=== PATIENT | male | born 1975 | race Caucasian/White ===

== ENCOUNTER 2017-05-29 16:27 | Emergency (ER) | payer BC ==
--- NOTE | 2017-05-29 16:58 | ERPHSYRPT ---
- History of Present Illness Time Seen by Provider: 05/29/17 16:51 Source: patient Exam Limitations: no limitations Patient Subjective Stated Complaint: at 1600 yesterday began having left jaw pain and pain radiating down left arm. left arm numb also. also having some nausea today. states jaw pain is inside mouth. Triage Nursing Assessment: ambulated to room per self. skin w/d, color normal, resp easy. no edema noted. denies any cardiac history. Physician History: 42-year-old white male arrives with complaint of pain in his left anterior lower jaw radiating to his face also shooting down his left shoulder and arm symptoms described as a sharp pain began yesterday at 4:00 in the afternoon patient denies shortness of breath she states she did have some nausea. He does state that he was seen by his family doctor and sent here for further evaluation. Past medical history includes prediabetic. Past surgical history includes left hand surgery. Social history patient denies tobacco alcohol or illicit drug use Timing/Duration: yesterday Severity: moderate Modifying Factors: Improves With: nothing Associated Symptoms: nausea, No vomiting, No abdominal pain, No shortness of breath, No heartburn, No diaphoresis, No cough, No chills, No chest pain, No fever, No headaches, No loss of appetite, No malaise, No syncope, No seizure, No weakness Allergies/Adverse Reactions: No Known Drug Allergies Allergy (Unverified 05/29/17 16:41) Hx Tetanus, Diphtheria Vaccination/Date Given: No Hx Influenza Vaccination/Date Given: No Hx Pneumococcal Vaccination/Date Given: No - Review of Systems Constitutional: No Fever, No Chills Eyes: No Symptoms Ears, Nose, & Throat: Mouth Pain, No No Symptoms, No Ear Pain, No Ear Discharge , No Hearing Changes, No Tinnitus, No Nose Pain, No Nose Congestion, No Nose Discharge, No Sinus Drainage, No Epistaxis, No Mouth Swelling, No Loose Teeth, No Throat Pain, No Throat Swelling, No Hoarse, No Painful Swallowing, No Snoring , No Stridor Respiratory: No Cough, No Dyspnea Cardiac: No Chest Pain, No Edema, No Syncope Abdominal/Gastrointestinal: Nausea, No Abdominal Pain, No Vomiting, No Diarrhea , No Constipation, No Hematemesis, No Hematochezia, No Melena, No Dysphagia, No Appetite Changes Genitourinary Symptoms: No Dysuria Musculoskeletal: Other (pain radiating down left shoulder and and arm), No Back Pain, No Neck Pain Skin: No Symptoms Neurological: No Dizziness, No Focal Weakness, No Sensory Changes Psychological: No Symptoms Endocrine: No Symptoms All Other Systems: Reviewed and Negative - Past Medical History Pertinent Past Medical History: Yes Other Medical History: pre diabetic - Past Surgical History Past Surgical History: Yes Musculoskeletal: Orthopedic Surgery Other Surgical History: left hand surgery - Social History Smoking Status: Never smoker Exposure to second hand smoke: No Drug Use: none Patient Lives Alone: No - Nursing Vital Signs Nursing Vital Signs: Initial Vital Signs Temperature 97.7 F 05/29/17 16:34 Pulse Rate 53 L 05/29/17 16:34 Respiratory Rate 16 05/29/17 16:34 Blood Pressure 174/97 05/29/17 16:34 O2 Sat by Pulse Oximetry 98 05/29/17 16:34 Pain Scale Pain Intensity [] 10 Pain Intensity 10 - Physical Exam General Appearance: no apparent distress, alert Eye Exam: PERRL/EOMI, eyes nml inspection Ears, Nose, Throat Exam: normal ENT inspection, TMs normal, pharynx normal, moist mucous membranes, other (patient with discolored tooth left maxillary area anterior and lateral coresponding to the area of the patient's pain not painfull with palpation) Neck Exam: normal inspection, non-tender, supple, full range of motion Respiratory Exam: normal breath sounds, lungs clear, No respiratory distress Cardiovascular Exam: regular rate/rhythm, normal heart sounds, normal peripheral pulses Gastrointestinal/Abdomen Exam: soft, normal bowel sounds, No tenderness, No mass Back Exam: normal inspection, normal range of motion, No CVA tenderness, No vertebral tenderness Extremity Exam: normal inspection, normal range of motion, pelvis stable Neurologic Exam: alert, oriented x 3, cooperative, normal mood/affect, nml cerebellar function, nml station & gait, sensation nml, No motor deficits Skin Exam: normal color, warm, dry, No rash SpO2 Interpretation: normal (98%) SpO2: 98 - Course Nursing assessment & vital signs reviewed: Yes EKG Interpreted by Me: RATE (48bpm), Sinus John (48 bpm), NORMAL AXIS, Other ( EKG: Sinus bradycardia 47 bpm normal axis no acute ST or T wave changes noted.) - Radiology Exams Chest X-ray Interpretation: Interpreted by me, Other (no acute disease process) Ordered Tests: Active Orders 24 hr Category Date Time Status EKG-ER Only STAT Care 05/29/17 16:51 Active IV Insertion STAT Care 05/29/17 16:51 Active CHEST 1 VIEW (PORTABLE) Stat Exams 05/29/17 16:51 Taken CBC W DIFF Stat Lab 05/29/17 16:50 Completed CMP Stat Lab 05/29/17 16:50 Completed TROPONIN Q3H Lab 05/29/17 16:50 Completed TROPONIN Q3H Lab 05/29/17 19:40 Completed TROPONIN Q3H Lab 05/29/17 23:00 Ordered TROPONIN Q3H Lab 05/30/17 02:00 Ordered TROPONIN Q3H Lab 05/30/17 05:00 Ordered Medication Summary Discontinued Medications Generic Name Dose Route Start Last Admin Trade Name Freq PRN Reason Stop Dose Admin Hydrocodone Bitart/Acetaminophen 1 tab 05/29/17 20:00 05/29/17 20:07 [place] 5/325 Mg PO 05/29/17 20:01 1 tab STAT ONE Administration Hydrocodone Bitart/Acetaminophen Confirm 05/29/17 20:03 [place] 5/325 Mg Administered 05/29/17 20:04 Dose 1 tab .ROUTE .STK-MED ONE Aspirin 324 mg 05/29/17 17:00 05/29/17 17:08 Baby Aspirin 81 Mg Chew PO 05/29/17 17:01 324 mg STAT ONE Administration Aspirin Confirm 05/29/17 17:07 Baby Aspirin 81 Mg Chew Administered 05/29/17 17:08 Dose 324 mg .ROUTE .STK-MED ONE Lab/Rad Data: Laboratory Result Diagrams 05/29/17 16:50 05/29/17 16:50 Laboratory Results 05/29/17 05/29/17 05/29/17 Range/Units 19:40 16:50 16:50 WBC (4.0-10.5) K/mm3 RBC (4.1-5.6) M/mm3 Hgb (12.5-18.0) gm/dl Hct (42-50) % MCV (78-100) fl MCH (26-32) pg MCHC (32-36) g/dl RDW (11.5-14.0) % Plt Count (150-450) K/mm3 MPV (6-9.5) fl Gran % (36.0-66.0) % Lymphocytes % (24.0-44.0) % Monocytes % (0.0-12.0) % Eosinophils % (0.00-5.0) % Basophils % (0.0-0.4) % Basophils # (0-0.4) Sodium 141 (136-145) mEq/L Potassium 4.3 (3.5-5.1) mEq/L Chloride 103 (98-107) mEq/L Carbon Dioxide 30.3 (21-32) mEq/L Anion Gap 12.3 (5-15) MEQ/L BUN 10 (9-20) mg/dL Creatinine 1.14 (0.55-1.30) mg/dl Estimated GFR > 60 ML/MIN Glucose 204 H (70-110) MG/DL Calcium 9.5 (8.5-10.1) mg/dL Total Bilirubin 0.80 (0.2-1.0) mg/dL AST 22 (15-37) U/L ALT 45 (12-78) U/L Alkaline Phosphatase 102 (46-116) U/L Troponin I < 0.017 < 0.017 (0.000-0.056) ng/ml Serum Total Protein 8.0 (6.4-8.2) gm/dL Albumin 4.2 (3.4-5.0) g/dL 05/29/ Range/Units 16:50 WBC 9.3 (4.0-10.5) K/mm3 RBC 5.46 (4.1-5.6) M/mm3 Hgb 15.0 (12.5-18.0) gm/dl Hct 44.7 (42-50) % MCV 81.9 (78-100) fl MCH 27.5 (26-32) pg MCHC 33.6 (32-36) g/dl RDW 13.6 (11.5-14.0) % Plt Count 211 (150-450) K/mm3 MPV 10.3 H (6-9.5) fl Gran % 75.2 H (36.0-66.0) % Lymphocytes % 14.0 L (24.0-44.0) % Monocytes % 8.1 (0.0-12.0) % Eosinophils % 2.4 (0.00-5.0) % Basophils % 0.3 (0.0-0.4) % Basophils # 0.03 (0-0.4) Sodium (136-145) mEq/L Potassium (3.5-5.1) mEq/L Chloride (98-107) mEq/L Carbon Dioxide (21-32) mEq/L Anion Gap (5-15) MEQ/L BUN (9-20) mg/dL Creatinine (0.55-1.30) mg/dl Estimated GFR ML/MIN Glucose (70-110) MG/DL Calcium (8.5-10.1) mg/dL Total Bilirubin (0.2-1.0) mg/dL AST (15-37) U/L ALT (12-78) U/L Alkaline Phosphatase (46-116) U/L Troponin I (0.000-0.056) ng/ml Serum Total Protein (6.4-8.2) gm/dL Albumin (3.4-5.0) g/dL - Progress Progress: improved Progress Note: 05/29/17 16:57 This is a 42-year-old white male sent by Dr. López patient is complaining of pain in the left anterior maxillary area described as a sharp pain which radiates down his left shoulder. He is not short of breath she does have nausea symptoms has been going on since yesterday afternoon, Dr. lópez was apparently concerned about possible cardiac etiology Will go ahead and give patient aspirin go ahead and do CBC CMP troponin EKG and a chest. At this point in the ER this does not appear to be cardiac in etiology patient does have a discolored tooth in the left anterior lateral maxillary area which corresponds to the area of his pain. This does not explain the patient's left shoulder pain this however is atypical. Will be sure patient gets aspirin and will do appropriate labs 05/29/17 17:37 I offered patient [place] for pain in his tooth. Patient does not want this at this time he has received aspirin 325 mg by mouth. . 05/29/17 18:15 Patient's EKG chest x-ray CBC CMP troponin all within normal limits with the exception of a glucose of 204. Patient states she is actually feeling better after getting baby aspirin. Will repeat patient's troponin 3 hours after last draw. 05/29/17 20:23 Patient's repeat troponin is normal. Patient is stable will discharge. - Departure Time of Disposition: 20:24 Departure Disposition: Home Clinical Impression: Pain, dental Left shoulder pain Qualifiers: Chronicity: acute Qualified Code(s): M25.512 - Pain in left shoulder Condition: Fair Critical Care Time: No Referrals: ZAKI LÓPEZ [Primary Care Provider] - Additional Instructions: Return home. Rest. Amoxicillin 500 mg orally 3 times a day for 10 days. [place] 5/325 #12 one orally every 4-6 hours as needed for pain. Follow-up with your family doctor. Return for acute distress or for severe symptoms. Prescriptions: Amoxicillin 500 mg PO TID #30 capsule Hydrocodone/Acetaminophen [[place] 5-325 Tablet] 1 tab PO Q4-6HPRN PRN #12 tablet PRN Reason: Pain
[2017-05-29 16:59] LABS: BASOPHIL % 0.3 % (0.0-0.4); Eosinophil % 2.4 % (0.00-5.0); Granulocytes % 75.2 % (36.0-66.0); Mean Cell Volume 81.9 fl (78-100); Mean Corpuscular Hemoglobin 27.5 pg (26-32); Mean Platelet Volume 10.3 fl (6-9.5); Monocytes % 8.1 % (0.0-12.0); Platelet Count 211 K/mm3 (150-450); Red Blood Count 5.46 M/mm3 (4.1-5.6); Red Cell Distribution Width 13.6 % (11.5-14.0); White Blood Count 9.3 K/mm3 (4.0-10.5)
[2017-05-29] MEDS ORDERED: BABY ASPIRIN 81 MG CHEW PO ONE (17:00)
[2017-05-29] MEDS ORDERED: BABY ASPIRIN 81 MG CHEW ONE (17:07)
[2017-05-29 17:30] LABS: ALBUMIN 4.2 g/dL (3.4-5.0); ALKALINE PHOSPHATASE 102 U/L (46-116); ANION GAP 12.3 MEQ/L (5-15); BLOOD UREA NITROGEN 10 mg/dL (9-20); CHLORIDE 103 mEq/L (98-107); Carbon Dioxide 30.3 mEq/L (21-32); Glucose 204 MG/DL (70-110); Potassium 4.3 mEq/L (3.5-5.1); SGOT/AST 22 U/L (15-37); SGPT/ALT 45 U/L (12-78); SODIUM 141 mEq/L (136-145)
[2017-05-29] MEDS ORDERED: NORCO 5/325 MG PO ONE (20:00)
[2017-05-29] MEDS ORDERED: NORCO 5/325 MG ONE (20:03)
[2017-05-29 20:29] VITALS: O2SAT 98
[2017-05-29 20:37] VITALS: BP 147/89; PULSE 65
--- NOTE | 2017-05-29 22:31 | XRAY ---
Indication: Left jaw pain radiating down left arm. Comparison: None Portable chest underinflated accentuating the cardiopulmonary structures. No focal infiltrate, consolidation, or large effusion. Heart still within normal limits for AP portable technique. Bony thorax intact. Impression: Nonacute underinflated chest.
== END 2017-05-29 20:36 | disposition home or self-care (01) ==
LOC: ED 16:27
DX: K08.89 Other specified disorders of teeth and supporting structures (principal); M25.512 Pain in left shoulder; R11.0 Nausea
CPT/HCPCS: 36000; 36415; 71010; 80053; 84484; 85025; 93005; 99284; A9270-GY

== ENCOUNTER 2023-12-30 06:03 | Day surgery (SDC) | payer OTHER ==
[2023-12-30] MEDS: Lactated Ringers 1,000 ML IV SCH (06:22)
[2023-12-30] MEDS ORDERED: DIPRIVAN 200 MG/20 ML IV ONE ×2 (07:54→08:10)
[2023-12-30] MEDS ORDERED: Versed 2 MG/2 ML Injection ONE (07:54)
[2023-12-30] MEDS ORDERED: Xylocaine-Mpf 2% 5 Ml Vial ONE (07:54)
[2023-12-30] MEDS ORDERED: ROBINUL ONE (08:03)
[2023-12-30] MEDS ORDERED: SUBLIMAZE 100 MCG/2 ML ONE (08:11)
[2023-12-30 09:14] VITALS: O2SAT 97
[2023-12-30 09:23] VITALS: BP 120/78; PULSE 68; RESP 18; TEMP 97.8
--- NOTE | 2023-12-31 09:34 | OP ---
SURGERY DATE/TIME: 12/30/2023 [id number] - [id number] PREOPERATIVE DIAGNOSIS: Screening exam. POSTOPERATIVE DIAGNOSIS: Small polyp in the transverse colon. Otherwise, normal colonoscopy. PROCEDURE: Colonoscopy with cold forceps biopsy. SURGEON: Harry Craft MD ANESTHESIA: Medication given by the anesthesia department. INDICATIONS: The patient is a 48-year-old white male patient, here for screening colon exam. The patient was apprised of the risks of the procedure, the risk of perforation, phlebitis, untoward reaction to medication, bleeding, and missed lesions. The patient verbalized his understanding and desired to have the procedure performed. DESCRIPTION OF PROCEDURE AND FINDINGS: The patient was given medication by the anesthesia department. He had continuous pulse oximetry, ECG monitoring, and intermittent blood pressure monitoring during the examination. He was placed in the left lateral decubitus position. Digital rectal examination was performed and revealed normal anal sphincter tone, no masses and a normal prostate. The flexible Olympus videocolonoscope was used to intubate the rectum. A view of the colon was developed sequentially to the cecum. Upon insertion and withdrawal including retroflexion in the rectum, there was noted 1 small polyp in the transverse colon, which was destroyed using 2 passes of the cold forceps biopsy instrument. With no other mucosal lesions being encountered, the scope was removed. The patient tolerated the procedure well and was sent back down to outpatient recovery in good condition. The prep was noted to be fair to good.
== END 2023-12-30 09:21 | disposition home or self-care (01) ==
LOC: SDC 06:03
PROVIDERS: ATTEND Family Medicine
DX: Z12.11 Encounter for screening for malignant neoplasm of colon (principal); D12.3 Benign neoplasm of transverse colon; E11.9 Type 2 diabetes mellitus without complications
CPT/HCPCS: 82947; J2250; J2704; J3010